=== PATIENT | male | born 1945 | race Caucasian/White ===

== ENCOUNTER 2020-12-18 19:27 | Emergency (ER) | payer MEDICARE, MEDICAID ==
[~2020-12-18] VITALS: Ht 182.9 cm; Wt 58.0 kg
[2020-12-18] MEDS ORDERED: HEPARIN SODIUM 25000 UNITS/D5W 250 ML IV ONE (20:10)
[2020-12-18 20:12] LABS: BASOPHILS % (AUTO) 0.2 % (0.0-2.0); EOSINOPHILS % (AUTO) 0 % (1.0-6.0); HEMATOCRIT 38.5 % (41-53); HEMOGLOBIN 12.3 g/dL (13.5-17.5); LYMPHOCYTES # (AUTO) 0.7 K/uL (1.0-4.8); LYMPHOCYTES % (AUTO) 3.6 % (22.0-44.0); MEAN CORPUSCULAR HEMOGLOBIN 30.4 pg (26.0-34.0); MEAN CORPUSCULAR HGB CONC 31.8 G/dL (31.0-37.0); MEAN CORPUSCULAR VOLUME 95 fL (80-100); MONOCYTES # (AUTO) 1.2 K/uL (0.1-1.0); MONOCYTES % (AUTO) 6.1 % (2.0-9.0); NEUTROPHILS # (AUTO) 18.2 K/uL (1.8-7.7); PLATELET COUNT (AUTO) 257 K/uL (150-450); RED BLOOD CELL COUNT(AUTO) 4.04 MIL/uL (4.50-5.90); RED CELL DISTRIBUTION WIDTH 14.9 % (11.5-14.5)
[2020-12-18 20:13] LABS: NEUTROPHILS % (AUTO) 90.1 % (40.0-70.0)
[2020-12-18 20:21] LABS: ANION GAP 13 mmol/L (8-16); CALCIUM, TOTAL 9.8 mg/dL (8.8-10.5); CARBON DIOXIDE 24 mmol/L (22-29); CHLORIDE 101 mmol/L (98-107); CREATININE 1.12 mg/dL (0.60-1.30); GLUCOSE,RANDOM 140 mg/dL (70-110); POTASSIUM 4.2 mmol/L (3.5-5.1); SODIUM SERUM 138 mmol/L (136-145); UREA NITROGEN, BLOOD 19 mg/dL (7-18)
[2020-12-18 20:22] LABS: GLOMERULAR FILTR. RATE CALC > 60 mL/min (>60)
[2020-12-18 20:23] LABS: PROTHROMBIN TIME 10.4 SEC (9.4-11.6)
[2020-12-18] MEDS ORDERED: HEPARIN SODIUM 25000 UNITS/D5W 250 ML IV PRN (20:30)
[2020-12-18 20:32] LABS: B-TYPE NATRIURETIC PEPTIDE 432 pg/mL (0-100)
[2020-12-18] MEDS ORDERED: ATORVASTATIN CALCIUM 40 MG TABLET PO SCH (20:45)
[2020-12-18] MEDS ORDERED: ONDANSETRON HCL 4 MG/2 ML VIAL IVP PRN (21:00)
[2020-12-18] MEDS ORDERED: MORPHINE SULFATE 2 MG/ML SYRINGE IVP PRN (21:00)
[2020-12-18] MEDS ORDERED: FAMOTIDINE 20 MG TABLET PO SCH (21:00)
[2020-12-18] MEDS ORDERED: OxyCODONE HCL/ACETAMINOPHEN 5-325 MG TABLET PO PRN (21:00)
[2020-12-18] MEDS ORDERED: DOCUSATE SODIUM 100 MG CAPSULE PO SCH (21:00)
[2020-12-18] MEDS ORDERED: CARVEDILOL 3.125 MG TABLET PO SCH (21:00)
[2020-12-18] MEDS ORDERED: ACETAMINOPHEN 325 MG TABLET PO PRN (21:00)
[2020-12-18] MEDS ORDERED: ALPR1TAB7 PO (21:05)
[2020-12-18] MEDS ORDERED: LAMO100 PO (21:05)
[2020-12-18] MEDS ORDERED: LISI-894 PO (21:05)
[2020-12-18] MEDS ORDERED: ASPI-1444 PO (21:05)
[2020-12-18] MEDS ORDERED: LEVE500T53 PO (21:05)
[2020-12-18] MEDS ORDERED: ONDA-104 PO (21:05)
[2020-12-18] MEDS ORDERED: HYDR-4072 PO (21:05)
[2020-12-18 21:06] LABS: ALANINE AMINOTRANSFERASE 53 U/L (12-78); ALBUMIN 4.4 g/dL (3.4-5.0); ALKALINE PHOSPHATASE 127 U/L (46-116); ASPARTATE AMINOTRANSFERASE 328 U/L (15-37); BILIRUBIN,TOTAL 0.5 mg/dL (0.1-1.0)
[2020-12-18 21:07] LABS: CREATINE KINASE, TOTAL ONLY 2229 U/L (39-308)
[2020-12-18] MEDS ORDERED: HEPARIN SODIUM,PORCINE 5,000 UNITS/ML VIAL IVP PRN ×2 (21:15)
[2020-12-18] MEDS ORDERED: NITROGLYCERIN 2% (1 GM=INCH) PACKET TP ONE (21:45)
[2020-12-18] MEDS ORDERED: LevETIRAcetam 500 MG TABLET PO SCH (22:00)
[2020-12-18] MEDS ORDERED: LORazepam 2 MG/ML VIAL IVP PRN (22:00)
[2020-12-18 22:10] VITALS: BP 122/68
[2020-12-18] MEDS ORDERED: NITROGLYCERIN 50 MG/D5% WATER 250 ML IV PRN (22:30)
[2020-12-18] MEDS ORDERED: ASPIRIN 81 MG CHEWABLE TABLET PO ONE (23:00)
[2020-12-19] MEDS ORDERED: CARVEDILOL 6.25 MG TABLET PO SCH (09:00)
== END 2020-12-18 22:45 | disposition short-term general hospital (02) ==
LOC: EMS 19:27 → EDSEX 19:27 → 5S 20:00 → UNDOADMIN 20:00 → 5S 20:01 → ICU 20:01 → EMS 22:45
DX: I21.4 Non-ST elevation (NSTEMI) myocardial infarction (principal); R07.9 Chest pain, unspecified; I10 Essential (primary) hypertension; E78.00 Pure hypercholesterolemia, unspecified
CPT/HCPCS: 36415; 71045; 80053; 82550; 83880; 84484; 85025; 85610; 85730; 93005; 93308; 96365; 96366; 99291; J1644; G0378